=== PATIENT | female | born 1985 | race Caucasian/White ===

== ENCOUNTER 2016-09-25 09:15 | Outpatient (CLI) | payer MEDICAID ==
[2016-10-01] MEDS ORDERED: VALTREX DPS500 MG PO (16:20)
[2016-10-01] MEDS ORDERED: PRENATAL VIT1 TAB PO (16:20)
[2016-10-01] MEDS ORDERED: NIPPLECREAM TP (16:21)
[2016-10-01] MEDS ORDERED: PERCOCET 5 DPS1 TAB PO (16:21)
[2016-10-01] MEDS ORDERED: MOTRIN-DPS800 MG PO (16:21)
== END 2016-09-25 10:10 | disposition home or self-care (01) ==
LOC: 2LDRP 09:15 → BC 09:15 → 2LDRP 09:16 → BC 10:10
DX: O42.92 Full-term premature rupture of membranes, unspecified as to length of time between rupture and onset of labor (principal); Z3A.38 38 weeks gestation of pregnancy

== ENCOUNTER 2016-09-28 06:55 | Inpatient (IN) | payer MEDICAID ==
[~2016-09-28] VITALS: Ht 165.1 cm; Wt 72.6 kg
--- NOTE | ~2016-09-28 | HP ---
ADMIT: 09/28/2016 RM/LOC: 221 [facility] MR#: [id number] 26[address] [facility] [address] [place], [place] [address] MARY BATRES [address] [place] [address] History and Physical SEX: F AGE: 31 : 1985 DATE OF SERVICE: CHIEF COMPLAINT: Induction of labor. HISTORY OF PRESENT ILLNESS: This is a 31-year-old female, 3, para 2, who presents to the [facility] with an intrauterine at 39 and 1/7th weeks' gestation for induction of labor. Her estimated date of confinement is 10/04/2016, this is based off last menstrual period and consistent with an 8-week ultrasound. Her has been complicated by a history of a positive HSV titer in the past. She has never had an outbreak of herpes. LABORATORY DATA: Blood type is O positive, antibody screen negative, hepatitis B surface antigen negative, RPR nonreactive, rubella immune, gonorrhea and chlamydia negative. Pap showed low-grade squamous intraepithelial lesion, cannot rule out a more advanced lesion. Quad screen was normal. Diabetic screen 151. Three-hour glucose tolerance test 82, 115, 90, and 85. Group B strep is negative. PAST MEDICAL HISTORY: She denies hypertension, diabetes, asthma, kidney, or thyroid disease. PAST SURGICAL HISTORY: Tonsillectomy and myringotomy tube placement. SOCIAL HISTORY: She is ; however, she is from her . The father of the baby is involved, but not her . She denies alcohol or drug use. She is a former smoker. ALLERGIES: NO KNOWN DRUG ALLERGIES. CURRENT MEDICATIONS: vitamins and Fioricet as needed for headaches. PHYSICAL EXAMINATION: VITAL SIGNS: Temperature 97.4, blood pressure 109/61, pulse 80, respirations 18. GENERAL: This is a pleasant female, in no acute distress. HEENT: Head is normocephalic, atraumatic. Pupils are equal, round, react to light and accommodation. Extraocular muscles are intact. NECK: Supple. HEART: Regular rate and rhythm. LUNGS: Clear bilaterally. ABDOMEN: Soft, nontender, and nondistended. Gravid. EXTREMITIES: Nontender. heart tones are 115 to 120 baseline, moderate variability is present, 15 x 15 accelerations are present. Decelerations are absent. Uterine ADMIT: 09/28/2016 RM/LOC: 221 [facility] MR#: [id number] [address] [address] MARY BATRES [address] [place] [address] History and Physical SEX: F AGE: 31 : 1985 contractions are irregular. Her cervix is 3 cm, 75%, -2 station. Fetus is vertex. Estimated weight is 8.5 pounds. On examination of the external genitalia, there does not appear to be any active or healing HSV lesions. IMPRESSION: 1. This is a 31-year-old female, 3, para 2, with an intrauterine at 39 and 1/7th weeks' gestation. 2. Group B streptococcus negative. PLAN: At this time, we do plan to proceed with induction of labor. We will start Pitocin, use assisted rupture of membranes as needed and anticipate a spontaneous vaginal delivery. Светлана Andersen MD/ sb JOB #: [id number] CC: Светлана Andersen, Attending Physician Светлана Andersen, Family Physician
--- NOTE | ~2016-09-28 | FD ---
ADMIT: 09/28/2016 RM/LOC: 221 [facility] MR#: [id number] 2620 [facility] [address] [place] [id number] MARY BATRES [address] [place] [address] Final Diagnosis SEX: F AGE: 31 : 1985 ADMISSION DATE: 09/28/2016 DISCHARGE DATE: 09/30/2016 FINAL DIAGNOSIS: Status post spontaneous vaginal delivery at term. PROCEDURE: 09/28/2016 spontaneous vaginal delivery with delivery of viable male, 8 pounds 9 ounces, Apgars 8 and 9. Светлана Andersen MD/ meseret JOB #: [id number] CC: Светлана Andersen MD, Attending Physician Светлана Andersen MD, Family Physician
[2016-10-01] MEDS ORDERED: PRENATAL VIT1 TAB PO (16:20)
[2016-10-01] MEDS ORDERED: VALTREX DPS500 MG PO (16:20)
[2016-10-01] MEDS ORDERED: NIPPLECREAM TP (16:21)
[2016-10-01] MEDS ORDERED: MOTRIN-DPS800 MG PO (16:21)
[2016-10-01] MEDS ORDERED: PERCOCET 5 DPS1 TAB PO (16:21)
--- NOTE | 2016-10-24 08:51 | OR ---
ADMIT: 09/28/2016 RM/LOC: 221 [facility] MR#: [id number] [address] [address] MARY BATRES [address] [place] [address] Operative/Delivery Room Report SEX: F AGE: 31 : 1985 SURGERY DATE: 09/28/2016 SURGEON: Светлана Andersen MD PREOPERATIVE DIAGNOSES: 1. Intrauterine at 39 and 1/7th weeks' gestation. 2. Active labor. 3. Group B streptococcus negative. POSTOPERATIVE DIAGNOSES: 1. Intrauterine at 39 and 1/7th weeks' gestation. 2. Active labor. 3. Group B streptococcus negative. 4. Delivery of a viable male at 1711 hours weighing 8 pounds 9 ounces with scores of 8 at 1 minute, 9 at 5 minutes. PROCEDURE: Spontaneous vaginal delivery with repair of first-degree midline laceration. ANESTHESIA: Epidural. COMPLICATIONS: None. ESTIMATED BLOOD LOSS: 200 mL. FLUIDS: Crystalloid. INDICATIONS: This is a 31-year-old female, 3, para 2, who presented to the [facility] with an intrauterine at 39 and 1/7th weeks' gestation for induction of labor. Her was complicated by history of a positive HSV titer; however, no personal history of an HSV outbreak. She has been on Valtrex for suppression. At the time of initial evaluation, she was noted to be 3 cm dilated. She was started on Pitocin. Assisted rupture of membranes was performed when she was 3.5 cm dilated. Clear fluid was noted. She did request and receive an epidural for pain control. She progressed to be complete in a satisfactory fashion. At which time, she was allowed to push bringing the infant's vertex to the perineum. DESCRIPTION OF PROCEDURE: The patient was noted to be complete. She was placed in the dorsal lithotomy position and prepped and draped in usual sterile fashion. She was asked to push and delivered the 's vertex in the left occiput anterior position over the midline. Nuchal cord was checked, none was noted. The anterior shoulder delivered easily followed by the posterior shoulder and the remainder of the infant. The did have ADMIT: 09/28/2016 RM/LOC: 221 [facility] MR#: [id number] [address] [address] MARY BATRES [address] [place] [address] Operative/Delivery Room Report SEX: F AGE: 31 : 1985 spontaneous cry and movement of all 4 extremities. He was passed to the mother's abdomen where nursing personnel were in attendance. After 1 minute, the cord was clamped x2 and cut by the father. Cord blood was obtained. Twenty units of Pitocin were infused with IV fluids to help firm the uterus. The placenta delivered intact spontaneously. The uterus was not explored. Examination of the cervix and vaginal vault did not reveal any lacerations. Examination of the perineum revealed a first-degree midline laceration. This was repaired in the usual fashion using 3-0 [address]ryl. I did also place a single [id number] stitch of 3-0 Vicryl at the 3 o'clock position and the hymenal ring. The patient tolerated the procedure well. Sponge, needle, and instrument counts were correct. The patient did recover in her Labor and Delivery suite with her . Светлана Andersen MD/ sb JOB #: [id number] CC: Светлана Andersen, Attending Physician Светлана Andersen, Family Physician
--- NOTE | 2016-10-24 08:51 | OR ---
ADMIT: 09/28/2016 RM/LOC: 221 [facility] MR#: [id number] [address] [address] MARY BATRES [address] [place] [address] Operative/Delivery Room Report SEX: F AGE: 31 : 1985 SURGERY DATE: 09/28/2016 SURGEON: Светлана Andersen MD PROCEDURE: Removal of epidural catheter. DESCRIPTION OF PROCEDURE: This is a 31-year-old female, 3, now para 3- 0-0-3, who [facility] [place] [facility] of [facility]. She did deliver a viable male with an epidural catheter placed. Following delivery, she was placed in the sitting position. Epidural catheter was removed without any difficulty. The tip was noted to be intact. The patient tolerated the procedure well and she is now recovering in her Labor and Delivery suite with her . Светлана Andersen MD/ sb JOB #: [id number] CC: Светлана Andersen, Attending Physician Светлана Andersen, Family Physician
== END 2016-09-30 10:46 | disposition home or self-care (01) | DRG 774 ==
LOC: BC 06:55 → 2LDRP 06:55 → BC 10-04 13:28
PROVIDERS: ADMIT Obstetrics & Gynecology
PROC: 10907ZC Drainage of Amniotic Fluid, Therapeutic from Products of Conception, Via Natural or Artificial Opening (ICD-10-PCS; principal; 2016-09-28)
PROC: 3E033VJ Introduction of Other Hormone into Peripheral Vein, Percutaneous Approach (ICD-10-PCS; principal; 2016-09-28)
PROC: 10E0XZZ Delivery of Products of Conception, External Approach (ICD-10-PCS; principal; 2016-09-28)
DX: O98.32 Other infections with a predominantly sexual mode of transmission complicating childbirth (principal); A60.00 Herpesviral infection of urogenital system, unspecified; O70.0 First degree perineal laceration during delivery; Z3A.39 39 weeks gestation of pregnancy; Z37.0 Single live birth; Z87.891 Personal history of nicotine dependence